=== PATIENT | male | born 1990 | race African-American/Black ===

== ENCOUNTER 2020-07-26 22:46 | Emergency (ER) | payer MEDICAID ==
[~2020-07-26] VITALS: Ht 177.8 cm; Wt 73.0 kg
[2020-07-26 23:42] VITALS: BP 134/72
== END 2020-07-27 00:29 | disposition home or self-care (01) ==
LOC: ER 22:46
DX: J45.909 Unspecified asthma, uncomplicated (principal); F41.9 Anxiety disorder, unspecified
CPT/HCPCS: 93005; 99283

== ENCOUNTER 2020-10-22 21:38 | Emergency (ER) | payer MEDICAID ==
[~2020-10-22] VITALS: Ht 182.9 cm; Wt 88.0 kg
[2020-10-22] MEDS ORDERED: BACITRACIN ZINC OINT UDPKT TOP ONE (22:15)
[2020-10-22] MEDS ORDERED: CLINDAMYCIN HCL 150MG CAPSULE PO ONE (22:15)
[2020-10-22] MEDS ORDERED: LIDOCAINE HCL/EPINEPHRINE 1%-EPI 1:100,000 10 ML VIAL IJ ONE (22:15)
[2020-10-22] MEDS ORDERED: CLIN300C12 MT (22:15)
[2020-10-22] MEDS ORDERED: LIDOCAINE HCL/EPINEPHRINE 1%-EPI 1:100,000 20 ML VIAL INFIL NR (22:30)
[2020-10-22] MEDS ORDERED: HYDROCODONE/ACETAMINOPHEN 10/325MG TABLET PO ONE (22:45)
[2020-10-22] MEDS ORDERED: IBUPROFEN 600MG TABLET PO ONE (22:45)
[2020-10-22 22:55] VITALS: BP 122/92
== END 2020-10-22 23:22 | disposition home or self-care (01) ==
LOC: ER 21:38
DX: L02.416 Cutaneous abscess of left lower limb (principal); F12.90 Cannabis use, unspecified, uncomplicated
CPT/HCPCS: 10060; 99284; J3490; Z7610